=== PATIENT | female | born 1935 | race Caucasian/White ===

== ENCOUNTER 2017-07-13 18:22 | Emergency (ER) | payer MEDICARE, OTHER ==
[2017-07-13] MEDS ORDERED: HALOPERIDOL 2 MG TABLET PO ONE (18:45)
--- NOTE | 2017-07-13 19:09 | RADIOLOGY REPORT (SQ) ---
EXAM DESCRIPTION: CHEST SINGLE VIEW COMPLETED DATE/TIME: 07/13/2017 6:58 pm REASON FOR STUDY: AMS COMPARISON: 12/10/2006. EXAM PARAMETERS: NUMBER OF VIEWS: One view. TECHNIQUE: Single frontal radiographic view of the chest acquired. RADIATION DOSE: NA LIMITATIONS: None. FINDINGS: LUNGS AND PLEURA: No opacities, masses or pneumothorax. No pleural effusion. MEDIASTINUM AND HILAR STRUCTURES: No masses. Contour normal. HEART AND VASCULAR STRUCTURES: Heart normal in size. Normal vasculature. BONES: No acute findings. HARDWARE: None in the chest. OTHER: No other significant finding. IMPRESSION: NO ACUTE RADIOGRAPHIC FINDING IN THE CHEST. TECHNICAL DOCUMENTATION: JOB ID: [id number] [employer]- All Rights Reserved
[2017-07-13] MEDS ORDERED: DIPHENHYDRAMINE HCL 25 MG CAPSULE PO ONE (21:12)
[2017-07-13] MEDS ORDERED: LORAZEPAM 0.5 MG TABLET PO ONE (21:12)
[2017-07-13 21:30] LABS: AMORPHOUS SEDIMENT,URINE TRACE /HPF; APPEARANCE,URINE SLIGHTLY-CLOUDY; BILIRUBIN,URINE NEGATIVE (NEGATIVE); CALCIUM OXALATE CRYSTALS,URINE TOO NUMEROUS TO CNT /HPF; COLOR,URINE YELLOW; GLUCOSE, URINE NEGATIVE (NEGATIVE); KETONES,URINE NEGATIVE (NEGATIVE); LEUKOCYTE ESTERASE,URINE LARGE (NEGATIVE); NITRITE,URINE NEGATIVE (NEGATIVE); PROTEIN,URINE NEGATIVE (NEGATIVE)
[2017-07-13 22:26] LABS: ABSOLUTE EOSINOPHILS # (AUTO) 0.1 10^3/uL (0.0-0.6); ABSOLUTE LYMPHOCYTES (AUTO) 1.7 10^3/uL (0.5-4.7); ABSOLUTE MONOCYTES (AUTO) 0.7 10^3/uL (0.1-1.4); ABSOLUTE NEUT (AUTO) 4.6 10^3/uL (1.7-8.2); BASOPHILS % (AUTO) 0.7 % (0-2); EOSINOPHILS % (AUTO) 1.3 % (0-6); HEMATOCRIT 38.4 % (36.0-47.0); HEMOGLOBIN 12.7 g/dL (12.0-15.5); LYMPHOCYTES % (AUTO) 23.8 % (13-45); MEAN CORPUSCULAR HEMOGLOBIN 29.4 pg (27.0-33.4); MEAN CORPUSCULAR HGB CONC 33.2 g/dL (32.0-36.0); MEAN CORPUSCULAR VOLUME 89 fl (80-97); MONOCYTES % (AUTO) 9.3 % (3-13); PLATELET COUNT 179 10^3/uL (150-450); RED BLOOD COUNT 4.33 10^6/uL (3.72-5.28); RED CELL DISTRIBUTION WIDTH 14.1 % (11.5-14.0); SEGMENTED NEUTROPHILS % (AUTO) 64.9 % (42-78); TOTAL CELLS COUNTED % (AUTO) 100 %; WHITE BLOOD COUNT 7.1 10^3/uL (4.0-10.5)
[2017-07-13 22:32] LABS: VENOUS BLOOD BASE EXCESS 1.9 mmol/L; VENOUS BLOOD HCO3 26.1 mmol/L (20-32); VENOUS BLOOD PCO2 39.5 mmHg (35-63); VENOUS BLOOD PH 7.44 (7.30-7.42)
[2017-07-13 22:43] LABS: ALANINE AMINOTRANSFERASE 27 U/L (9-52); ALBUMIN 3.1 g/dL (3.5-5.0); ALKALINE PHOSPHATASE 77 U/L (38-126); ANION GAP 6 (5-19); ASPARTATE AMINO TRANSFERASE 25 U/L (14-36); BILIRUBIN,TOTAL 0.2 mg/dL (0.2-1.3); BLOOD UREA NITROGEN 17 mg/dL (7-20); CALCIUM 8.9 mg/dL (8.4-10.2); CARBON DIOXIDE 27 mmol/L (22-30); CHLORIDE 108 mmol/L (98-107); POTASSIUM 4.1 mmol/L (3.6-5.0); SODIUM 141.3 mmol/L (137-145); TOTAL PROTEIN 5.5 g/dL (6.3-8.2)
[2017-07-13 22:45] LABS: GLUCOSE 92 mg/dL (75-110)
--- NOTE | 2017-07-13 23:06 | RADIOLOGY REPORT (SQ) ---
EXAM DESCRIPTION: CT HEAD WITHOUT COMPLETED DATE/TIME: 07/13/2017 10:42 pm REASON FOR STUDY: ams leaning COMPARISON: MRI brain 03/12/2016, CT head 11/25/2013 TECHNIQUE: Axial images acquired through the brain without intravenous contrast. Images reviewed wi th bone, brain and subdural windows. Images stored on PACS. All CT scanners at this facility use dose modulation, iterative reconstruction, and/or weight based d osing when appropriate to reduce radiation dose to as low as reasonably achievable (ALARA). [facility]: Dose Right [facility]: CareDose [facility]: Dose Right [facility]: Teradose 4D [facility]: Smart [employer] RADIATION DOSE: CT Rad equipment meets quality standard of care and radiation dose reduction techniq ues were employed. CTDIvol: 67.0 mGy. DLP: 1316 mGy-cm.mGy. LIMITATIONS: None. FINDINGS: VENTRICLES: Prominent. CEREBRUM: No mass effect. No hemorrhage. No midline shift. Areas of low density in the white matte r most likely due to chronic micro-vascular ischemic change. No evidence for acute territorial infar ction. CEREBELLUM: No hemorrhage. No alteration of density. No evidence for acute infarction. EXTRAAXIAL SPACES: Age-related involutional change. No fluid collections. ORBITS AND GLOBE: Symmetrical contour of the globes. CALVARIUM: No depressed fracture. PARANASAL SINUSES: No air-fluid level. SOFT TISSUES: No hematoma. IMPRESSION: No acute intracranial hemorrhage or acute territorial infarct. Chronic changes of atrop hy and microvascular ischemia. EVIDENCE OF ACUTE STROKE: NO. TECHNICAL DOCUMENTATION: JOB ID: [id number] [employer] Quality ID # [id number]: Final reports with documentation of one or more dose reduction techniques (e.g., Au tomated exposure control, adjustment of the mA and/or kV according to patient size, use of iterative reconstruction technique) 2010 [employer]- All Rights Reserved
[2017-07-13] MEDS ORDERED: CEPHALEXIN 500 MG CAPSULE PO ONE (23:11)
--- NOTE | 2017-07-13 23:51 | ER Document Report ---
ED General - General Chief Complaint: Altered Mental Status Stated Complaint: ALTERED MENTAL STATUS Time Seen by Provider: 07/13/17 18:37 TRAVEL OUTSIDE OF THE [place] IN LAST 30 DAYS: No - HPI Patient complains to provider of: Altered mental state leaning when standing Notes: Patient coming in for altered mental state and leaning standing. Patient has a history of dementia. According to EMS and family memberPatient has a history of dementia and normally is a little aggressive however more aggressive today. Also patient has a lean whenever she stands initial concern was for stroke. By my evaluation patient moving all 4 extremities no signs or unilateral weakness. Patient is somewhat confused however family member states this is normal possible but worse than baseline. More exacerbated than baseline - Related Data Allergies/Adverse Reactions: No Known Allergies Allergy (Unverified 02/05/13 10:44) Past Medical History - Social History Smoking Status: Unknown if Ever Smoked Family History: None - Past Medical History Cardiac Medical History: Reports: Hx Hypertension Denies: Hx Coronary Artery Disease, Hx Heart Attack Pulmonary Medical History: Denies: Hx Asthma, Hx Bronchitis, Hx COPD, Hx Pneumonia Neurological Medical History: Denies: Hx Cerebrovascular Accident, Hx Seizures Musculoskeltal Medical History: Reports Hx Arthritis - ALL OVER Past Surgical History: Reports: Hx Breast Surgery - Immunizations Hx Diphtheria, Pertussis, Tetanus Vaccination: Yes Review of Systems - Review of Systems -: Yes ROS unobtainable due to patient's medical condition - Dementia Physical Exam - Vital signs Interpretation: Normal - General General appearance: Appears well, Alert - HEENT Head: Normocephalic, Atraumatic Eyes: Normal Pupils: PERRL - Respiratory Respiratory status: No respiratory distress Chest status: Nontender Breath sounds: Normal Chest palpation: Normal - Cardiovascular Rhythm: Regular Heart sounds: Normal auscultation Murmur: No - Abdominal Inspection: Normal Distension: No distension Bowel sounds: Normal Tenderness: Nontender Organomegaly: No organomegaly - Back Back: Normal, Nontender - Extremities General upper extremity: Normal inspection, Nontender, Normal color, Normal ROM , Normal temperature General lower extremity: Normal inspection, Nontender, Normal color, Normal ROM , Normal temperature, Normal weight bearing. 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 No signs of weakness able to lift both legs off the bed without difficulty. Patient has symmetrical facial movements - Psychological Associated symptoms: Normal affect, Normal mood - Skin Skin Temperature: Warm Skin Moisture: Dry Skin Color: Normal Course - Re-evaluation Re-evalutation: 07/13/17 23:48 Laboratory studies showed possible signs of UTI. Patient was given a dose of Keflex will send urine for culture. Laboratory studies not reveal any critical pathology. Head CT and chest x-ray also negative. May be muscle skeletal issue for the reason the patient walks a little abnormal but no signs of stroke or acute neurological disease. Patient possible exacerbation of her dementia or change in her mental state could be from a underlying UTI. At this time patient otherwise does not look to be septic is able tolerate orals therefore will discharge patient back to [facility] facility - Laboratory Result Diagrams: 07/13/17 22:10 07/13/17 22:10 Laboratory results interpreted by me: 07/13/17 07/13/17 07/13/17 19:10 22:10 22:10 RDW 14.1 H VBG pH Chloride 108 H Total Protein 5.5 L Albumin 3.1 L Urine Blood SMALL H Urine Urobilinogen 2.0 H Ur Leukocyte Esterase LARGE H 07/13/17 22:10 RDW VBG pH 7.44 H Chloride Total Protein Albumin Urine Blood Urine Urobilinogen Ur Leukocyte Esterase Discharge - Discharge Clinical Impression: gait change UTI (urinary tract infection) Qualifiers: Urinary tract infection type: site unspecified Hematuria presence: without hematuria Qualified Code(s): N39.0 - Urinary tract infection, site not specified Instructions: Cephalexin ([facility]), Urinary Tract Infection ([facility]) Additional Instructions: Patient was evaluated no signs of stroke CT scan also showed no signs of intracranial bleeding. Urinalysis shows possible signs of urinary tract infection will start the patient on Keflex. Gait changes could be muscle skeletal nature no bony point tenderness no signs of fracture on examination. We recommend continue antibiotics continue patient's home medications have patient follow-up with PCP. A urine culture was sent and should be followed up in the next 24-48 hours Prescriptions: Cephalexin Monohydrate [Keflex 500 mg Capsule] 500 mg PO QID #20 capsule Referrals: DERIAN TRAN MD [Primary Care Provider] - Follow up as needed
[2017-07-13 23:52] LABS: INTERNATIONAL RATION (INR) 1.08; PROTHROMBIN TIME 14.8 SEC (11.4-15.4)
[2017-07-14 03:27] VITALS: BP 114/75
--- NOTE | 2017-07-14 07:57 | EKG REPORT ---
SEVERITY:- BORDERLINE ECG - SINUS RHYTHM BORDERLINE R WAVE PROGRESSION, ANTERIOR LEADS : Confirmed by: Randall Meredith MD 14-Jul-2017 07:57:18
== END 2017-07-14 03:26 | disposition home health service (06) ==
LOC: ER 18:22
DX: N39.0 Urinary tract infection, site not specified (principal); R26.9 Unspecified abnormalities of gait and mobility; R41.82 Altered mental status, unspecified
CPT/HCPCS: 93005; 99285; 36415; 87040; 87086; 85025; 85610; 87088; 80053; 81001; 82803; 83605; 71045; 70450; 93010; A9270 ×3; J3490

== ENCOUNTER 2017-07-18 09:05 | Emergency (ER) | payer MEDICARE, OTHER ==
--- NOTE | 2017-07-18 10:19 | RADIOLOGY REPORT (SQ) ---
EXAM DESCRIPTION: CT CERVICAL SPINE WITHOUT; CT HEAD WITHOUT COMPLETED DATE/TIME: 07/18/2017 10:01 am REASON FOR STUDY: [facility] COMPARISON: See below. TECHNIQUE: Axial images acquired through the brain and cervical spine without intravenous contrast. Images reviewed with brain, subdural, lung, soft tissue and bone windows. Reconstructed coronal and sagittal MPR images reviewed. Images stored on PACS. All CT scanners at this facility use dose modulation, iterative reconstruction, and/or weight based d osing when appropriate to reduce radiation dose to as low as reasonably achievable (ALARA). [facility]: Dose Right [facility]: CareDose [facility]: Dose Right [facility]: Teradose 4D [facility]: [employer] RADIATION DOSE: CT Rad equipment meets quality standard of care and radiation dose reduction techniq ues were employed. CTDIvol: 7.7 mGy. DLP: 135 mGy-cm.; CT Rad equipment meets quality standard of car e and radiation dose reduction techniques were employed. CTDIvol: 63.5 mGy. DLP: 1163 mGy-cm. mGy. LIMITATIONS: None. FINDINGS: Brain: 07/13/2017 comparison. Moderate small vessel disease. No hemorrhage or mass or shift or developing hy drocephalus. Bones intact. Paranasal sinuses clear. Cervical spine: Minimal C4-5 anterolisthesis looks degenerative. Multilevel disc disease. Left facet arthropathy, m ost pronounced at C3-4-5. No fracture. No worrisome lesions. Soft tissues intact. IMPRESSION: 1. Chronic intracranial changes. Small vessel disease. No acute abnormality. 2. Cerv ical spondylosis without fracture. TECHNICAL DOCUMENTATION: JOB ID: [id number] Quality ID # [id number]: Final reports with documentation of one or more dose reduction techniques (e.g., Au tomated exposure control, adjustment of the mA and/or kV according to patient size, use of iterative reconstruction technique) 2010 [employer]- All Rights Reserved
--- NOTE | 2017-07-18 10:19 | RADIOLOGY REPORT (SQ) ---
EXAM DESCRIPTION: CT CERVICAL SPINE WITHOUT; CT HEAD WITHOUT COMPLETED DATE/TIME: 07/18/2017 10:01 am REASON FOR STUDY: fall? at assisted neck back hip pain COMPARISON: See below. TECHNIQUE: Axial images acquired through the brain and cervical spine without intravenous contrast. Images reviewed with brain, subdural, lung, soft tissue and bone windows. Reconstructed coronal and sagittal MPR images reviewed. Images stored on PACS. All CT scanners at this facility use dose modulation, iterative reconstruction, and/or weight based d osing when appropriate to reduce radiation dose to as low as reasonably achievable (ALARA). [facility]: Dose Right [facility]: CareDose [facility]: Dose Right [facility]: Teradose 4D [facility]: [employer] RADIATION DOSE: CT Rad equipment meets quality standard of care and radiation dose reduction techniq ues were employed. CTDIvol: 7.7 mGy. DLP: 135 mGy-cm.; CT Rad equipment meets quality standard of car e and radiation dose reduction techniques were employed. CTDIvol: 63.5 mGy. DLP: 1163 mGy-cm. mGy. LIMITATIONS: None. FINDINGS: Brain: 07/13/2017 comparison. Moderate small vessel disease. No hemorrhage or mass or shift or developing hy drocephalus. Bones intact. Paranasal sinuses clear. Cervical spine: Minimal C4-5 anterolisthesis looks degenerative. Multilevel disc disease. Left facet arthropathy, m ost pronounced at C3-4-5. No fracture. No worrisome lesions. Soft tissues intact. IMPRESSION: 1. Chronic intracranial changes. Small vessel disease. No acute abnormality. 2. Cerv ical spondylosis without fracture. TECHNICAL DOCUMENTATION: JOB ID: [id number] Quality ID # [id number]: Final reports with documentation of one or more dose reduction techniques (e.g., Au tomated exposure control, adjustment of the mA and/or kV according to patient size, use of iterative reconstruction technique) 2010 [employer]- All Rights Reserved
--- NOTE | 2017-07-18 10:23 | RADIOLOGY REPORT (SQ) ---
EXAM DESCRIPTION: HIP BILATERAL; T SPINE AP/LAT; L SPINE WHOLE COMPLETED DATE/TIME: 07/18/2017 10:11 am; 07/18/2017 10:12 am REASON FOR STUDY: fall pain; fall? at [facility] hip pain COMPARISON: None. FINDINGS: Two view thoracic spine: Osteopenic. Mild kyphosis. No fracture. Multilevel mild disc space narrowing and associated osteophytes. No mediastinal mass or lung pathology demonstrated. Five view lumbosacral spine including obliques: Osteopenic. Mild grade 1 degenerative listhesis at L4-5. No pars defect. Multilevel facet degenerative overgrowth. Relatively mild disc disease at mu ltiple levels. Bilateral hips: 4 images total. Relatively symmetric mild degenerative hip joint spurring. Joint s paces are fairly maintained otherwise. No fracture or bone lesion. Degenerative SI joint changes. IMPRESSION: 1. Osteopenic. 2. Degenerative thoracic and lumbar spine changes. No spine or hip fra cture. TECHNICAL DOCUMENTATION: JOB ID: [id number]
--- NOTE | 2017-07-18 10:23 | RADIOLOGY REPORT (SQ) ---
EXAM DESCRIPTION: HIP BILATERAL; T SPINE AP/LAT; L SPINE WHOLE COMPLETED DATE/TIME: 07/18/2017 10:11 am; 07/18/2017 10:12 am REASON FOR STUDY: fall pain; fall? at [facility] pain COMPARISON: None. FINDINGS: Two view thoracic spine: Osteopenic. Mild kyphosis. No fracture. Multilevel mild disc space narrowing and associated osteophytes. No mediastinal mass or lung pathology demonstrated. Five view lumbosacral spine including obliques: Osteopenic. Mild grade 1 degenerative listhesis at L4-5. No pars defect. Multilevel facet degenerative overgrowth. Relatively mild disc disease at mu ltiple levels. Bilateral hips: 4 images total. Relatively symmetric mild degenerative hip joint spurring. Joint s paces are fairly maintained otherwise. No fracture or bone lesion. Degenerative SI joint changes. IMPRESSION: 1. Osteopenic. 2. Degenerative thoracic and lumbar spine changes. No spine or hip fra cture. TECHNICAL DOCUMENTATION: JOB ID: [id number]
--- NOTE | 2017-07-18 10:23 | RADIOLOGY REPORT (SQ) ---
EXAM DESCRIPTION: HIP BILATERAL; T SPINE AP/LAT; L SPINE WHOLE COMPLETED DATE/TIME: 07/18/2017 10:11 am; 07/18/2017 10:12 am REASON FOR STUDY: fall pain; fall? at [facility] neck back hip pain COMPARISON: None. FINDINGS: Two view thoracic spine: Osteopenic. Mild kyphosis. No fracture. Multilevel mild disc space narrowing and associated osteophytes. No mediastinal mass or lung pathology demonstrated. Five view lumbosacral spine including obliques: Osteopenic. Mild grade 1 degenerative listhesis at L4-5. No pars defect. Multilevel facet degenerative overgrowth. Relatively mild disc disease at mu ltiple levels. Bilateral hips: 4 images total. Relatively symmetric mild degenerative hip joint spurring. Joint s paces are fairly maintained otherwise. No fracture or bone lesion. Degenerative SI joint changes. IMPRESSION: 1. Osteopenic. 2. Degenerative thoracic and lumbar spine changes. No spine or hip fra cture. TECHNICAL DOCUMENTATION: JOB ID: [id number]
--- NOTE | 2017-07-18 10:42 | ER Document Report ---
ED General - General Chief Complaint: Fall Stated Complaint: FALL NECK PAIN Time Seen by Provider: 07/18/17 09:15 TRAVEL OUTSIDE OF THE [place] IN LAST 30 DAYS: No - HPI Patient complains to provider of: Possible fall Notes: Patient coming in for local assisted facility for possible fall. Upon evaluating the patient with dementia patient complains of pain on top of her head neck pain and hip pain. Otherwise patient is a for historian unable to give much of information on HPI. Most of the HPI is obtained from EMS report and nursing reports. Patient otherwise looks nontoxic - Related Data Allergies/Adverse Reactions: No Known Allergies Allergy (Unverified 02/05/13 10:44) Past Medical History - Social History Smoking Status: Unknown if Ever Smoked Chew tobacco use (# tins/day): No Frequency of alcohol use: None Drug Abuse: None Family History: Reviewed & Not Pertinent Patient has suicidal ideation: No Patient has homicidal ideation: No - Past Medical History Cardiac Medical History: Reports: Hx Hypertension Denies: Hx Coronary Artery Disease, Hx Heart Attack Pulmonary Medical History: Denies: Hx Asthma, Hx Bronchitis, Hx COPD, Hx Pneumonia Neurological Medical History: Denies: Hx Cerebrovascular Accident, Hx Seizures Renal/ Medical History: Denies: Hx Peritoneal Dialysis Musculoskeltal Medical History: Reports Hx Arthritis - ALL OVER Past Surgical History: Reports: Hx Breast Surgery - Immunizations Hx Diphtheria, Pertussis, Tetanus Vaccination: Yes Review of Systems - Review of Systems -: Yes ROS unobtainable due to patient's medical condition - Dementia Physical Exam - Vital signs Vitals: Resp Pulse Ox 23 H 99 07/18/17 09:24 07/18/17 09:24 Interpretation: Normal - General General appearance: Appears well, Alert - HEENT Head: Normocephalic, Atraumatic, Other - Small hematoma to the right superior occipital region Eyes: Normal Pupils: PERRL Neck: Other - Diffuse neck pain - Respiratory Respiratory status: No respiratory distress Chest status: Nontender Breath sounds: Normal Chest palpation: Normal - Cardiovascular Rhythm: Regular Heart sounds: Normal auscultation Murmur: No - Abdominal Inspection: Normal Distension: No distension Bowel sounds: Normal Tenderness: Nontender Organomegaly: No organomegaly - Back Back: Normal, Nontender - Extremities General upper extremity: Normal inspection, Nontender, Normal color, Normal ROM , Normal temperature General lower extremity: Normal inspection, Nontender, Normal color, Normal ROM , Normal temperature, Normal weight bearing. No: Dev's sign - Neurological Neuro grossly intact: Yes Cognition: Confused Motor strength normal: LUE, RUE, LLE, RLE Sensory: Normal - Psychological Associated symptoms: Normal mood, Confused - Skin Skin Temperature: Warm Skin Moisture: Dry Skin Color: Normal Course - Re-evaluation Re-evalutation: 07/18/17 14:56 X-rays were performed the patient complains of tenderness. No signs of acute fracture more likely underlying bruising or contusions. He will update the family. Patient will be discharged back to the assisted facility. - Vital Signs Vital signs: Temp Pulse Resp BP Pulse Ox 97.4 F 78 13 169/71 H 100 07/18/17 12:02 07/18/17 12:02 07/18/17 10:05 07/18/17 12:02 07/18/17 12:02 Discharge - Discharge Clinical Impression: Fall Qualifiers: Encounter type: initial encounter Qualified Code(s): W19.XXXA - Unspecified fall, initial encounter Arthralgia Qualifiers: Joint pain location: unspecified Qualified Code(s): M25.50 - Pain in unspecified joint Back pain Qualifiers: Chronicity: unspecified Back pain laterality: unspecified Sciatica presence: without sciatica Condition: Good Disposition: HOME, SELF-CARE Instructions: Contusion ([facility]), Ice Packs ([facility]), Warm Packs ([facility]) Additional Instructions: Patient was seen and evaluated for possible fall. Head CT cervical spine CT x- rays of the hips and back do not reveal any new pathology no fractures. These continue with Tylenol for pain control. He may also place warm packs and cold packs on the areas that hurt. Have patient follow-up PCP as needed. Referrals: DERIAN TRAN MD [Primary Care Provider] - Follow up as needed
[2017-07-18 12:03] VITALS: BP 169/71
== END 2017-07-18 12:00 | disposition home or self-care (01) ==
LOC: ER 09:05
DX: S00.03XA Contusion of scalp, initial encounter (principal); M54.9 Dorsalgia, unspecified; R51 Headache; M54.2 Cervicalgia; M25.559 Pain in unspecified hip; W19.XXXA Unspecified fall, initial encounter; F03.90 Unspecified dementia, unspecified severity, without behavioral disturbance, psychotic disturbance, mood disturbance, and anxiety; I10 Essential (primary) hypertension
CPT/HCPCS: 70450; 72070; 72110; 72125; 73522; 99284

== ENCOUNTER 2017-10-23 15:45 | Emergency (ER) | payer MEDICARE, OTHER ==
[2017-10-23 16:21] VITALS: BP 137/75
--- NOTE | 2017-10-23 16:32 | ER Document Report ---
ED Fall - General Chief Complaint: Fall Stated Complaint: FALL Time Seen by Provider: 10/23/17 16:31 TRAVEL OUTSIDE OF THE [place] IN LAST 30 DAYS: No - Related data Allergies/Adverse Reactions: No Known Allergies Allergy (Unverified 02/05/13 10:44) Past Medical History - Social History Family History: Reviewed & Not Pertinent - Past Medical History Cardiac Medical History: Reports: Hx Hypertension Denies: Hx Coronary Artery Disease, Hx Heart Attack Pulmonary Medical History: Denies: Hx Asthma, Hx Bronchitis, Hx COPD, Hx Pneumonia Neurological Medical History: Denies: Hx Cerebrovascular Accident, Hx Seizures Renal/ Medical History: Denies: Hx Peritoneal Dialysis Musculoskeltal Medical History: Reports Hx Arthritis - ALL OVER Past Surgical History: Reports: Hx Breast Surgery - Immunizations Hx Diphtheria, Pertussis, Tetanus Vaccination: Yes Physical Exam - Vital signs Vitals: Temp Pulse Resp BP Pulse Ox 98.1 F 92 18 137/75 H 97 10/23/17 16:20 10/23/17 16:20 10/23/17 16:20 10/23/17 16:20 10/23/17 16:20 Course - Vital Signs Vital signs: Temp Pulse Resp BP Pulse Ox 98.1 F 92 18 137/75 H 97 10/23/17 16:20 10/23/17 16:20 10/23/17 16:20 10/23/17 16:20 10/23/17 16:20
--- NOTE | 2017-10-23 16:34 | ER Document Report ---
ED Fall - General Chief Complaint: Fall Stated Complaint: FALL Time Seen by Provider: 10/23/17 16:31 Mode of Arrival: Medic Information source: Transfer Record, [facility] Records Notes: This is an 81-year-old female with a history of dementia who is brought in to the emergency room by EMS after a fall at home. Patient has brought in with cervical collar. No known loss of consciousness. TRAVEL OUTSIDE OF THE [place] IN LAST 30 DAYS: No - HPI Occurred: Just prior to arrival Where: Group Home Context: Slipped Associated symptoms: denies: Lost consciousness Location of injury/pain: Head Quality of pain: No pain Severity: None Pain Level: Denies - Related data Allergies/Adverse Reactions: No Known Allergies Allergy (Unverified 02/05/13 10:44) Past Medical History - General Information source: Patient Cannot obtain history due to: Other - Patient has baseline dementia - Social History Smoking Status: Never Smoker Cigarette use (# per day): No Chew tobacco use (# tins/day): No Frequency of alcohol use: None Drug Abuse: None Lives with: Group Home Family History: Reviewed & Not Pertinent Patient has suicidal ideation: No Patient has homicidal ideation: No - Past Medical History Cardiac Medical History: Reports: Hx Hypertension Denies: Hx Coronary Artery Disease, Hx Heart Attack Pulmonary Medical History: Denies: Hx Asthma, Hx Bronchitis, Hx COPD, Hx Pneumonia Neurological Medical History: Denies: Hx Cerebrovascular Accident, Hx Seizures Renal/ Medical History: Denies: Hx Peritoneal Dialysis Musculoskeltal Medical History: Reports Hx Arthritis - ALL OVER Past Surgical History: Reports: Hx Breast Surgery - Immunizations Hx Diphtheria, Pertussis, Tetanus Vaccination: Yes Review of Systems - Review of Systems Constitutional: denies: Chills, Fever EENT: No symptoms reported Cardiovascular: No symptoms reported Respiratory: No symptoms reported Gastrointestinal: No symptoms reported Genitourinary: No symptoms reported Female Genitourinary: No symptoms reported Musculoskeletal: No symptoms reported Skin: No symptoms reported Hematologic/Lymphatic: No symptoms reported Neurological/Psychological: See HPI Physical Exam - Vital signs Vitals: Temp Pulse Resp BP Pulse Ox 98.1 F 92 18 137/75 H 97 10/23/17 16:20 10/23/17 16:20 10/23/17 16:20 10/23/17 16:20 10/23/17 16:20 Notes: Physical exam: GENERAL: 81-year-old female, alert with dementia. HEAD: Atraumatic, normocephalic. EYES: Pupils equal round and reactive to light, extraocular movements intact, sclera anicteric, conjunctiva are normal. ENT: TMs normal, nares patent, oropharynx clear without exudates. Moist mucous membranes. NECK: Cervical collar in place LUNGS: Breath sounds clear to auscultation bilaterally and equal. No wheezes rales or rhonchi. HEART: Regular rate and rhythm without murmurs, rubs or gallops. ABDOMEN: Soft, normoactive bowel sounds. No tenderness to palpation. No guarding, no rebound. No masses appreciated. EXTREMITIES: Normal range of motion, no pitting or edema. No clubbing or cyanosis. NEUROLOGICAL: Alert, baseline dementia, moving all extremities. PSYCH: Normal mood, normal affect. SKIN: Warm, Dry, normal turgor, no rashes or lesions noted. Course - Vital Signs Vital signs: Temp Pulse Resp BP Pulse Ox 98.1 F 92 18 137/75 H 97 10/23/17 16:20 10/23/17 16:20 10/23/17 16:20 10/23/17 16:20 10/23/17 16:20 - Diagnostic Test Radiology reviewed: Image reviewed, Reports reviewed - Head CT shows no acute bleed. CT of the neck shows no acute fracture. There is some endplate deformities which are subacute over T2 and T3 (patient has no tenderness over this area). Discharge - Discharge Clinical Impression: Contusion head status post fall Condition: Stable Disposition: HOME, SELF-CARE Additional Instructions: Note: The CT of the head showed no acute bleed or fracture. The CT of the neck showed no fractures. There was some degenerative changes in the upper thoracic spine which the patient states has a history of. She has no tenderness over this area. Recommendations: Continue current medicines. Fall precautions. Return to the emergency room for any problems.
--- NOTE | 2017-10-23 17:40 | RADIOLOGY REPORT (SQ) ---
EXAM DESCRIPTION: CT HEAD WITHOUT COMPLETED DATE/TIME: 10/23/2017 5:28 pm REASON FOR STUDY: fall COMPARISON: CT dated 07/18/2017 and 07/13/2017. MR dated 03/12/2016. TECHNIQUE: Axial images acquired through the brain without intravenous contrast. Images reviewed wi th bone, brain and subdural windows. Additional sagittal and coronal reconstructions were generated. Images stored on PACS. All CT scanners at this facility use dose modulation, iterative reconstruction, and/or weight based d osing when appropriate to reduce radiation dose to as low as reasonably achievable (ALARA). [facility]: Dose Right [facility]: CareDose [facility]: Dose Right [facility]: Teradose 4D [facility]: Biologics Modular RADIATION DOSE: mGy. LIMITATIONS: None. FINDINGS: VENTRICLES: Prominent. CEREBRUM: No masses. No hemorrhage. No midline shift. Areas of low density in the white matter mos t likely due to chronic micro-vascular ischemic change. No evidence for acute infarction. CEREBELLUM: No masses. No hemorrhage. No alteration of density. No evidence for acute infarction. EXTRAAXIAL SPACES: Age-related involutional change. No fluid collections. No masses. ORBITS AND GLOBE: No intra- or extraconal masses. Normal contour of globe without masses. CALVARIUM: No fracture. PARANASAL SINUSES: No fluid or mucosal thickening. SOFT TISSUES: No mass or hematoma. OTHER: Pituitary mass again seen. IMPRESSION: CHRONIC CHANGES OF ATROPHY AND MICROVASCULAR ISCHEMIA. PITUITARY MASS APPEARS UNCHANGED COMPARED TO PRIOR MRI IN MARCH 2016. NO ACUTE PROCESS. EVIDENCE OF ACUTE STROKE: NO. TECHNICAL DOCUMENTATION: JOB ID: [id number] Quality ID # [id number]: Final reports with documentation of one or more dose reduction techniques (e.g., Au tomated exposure control, adjustment of the mA and/or kV according to patient size, use of iterative reconstruction technique) 2010 [employer]- All Rights Reserved Reading location - IP/workstation name: [email or web address]
--- NOTE | 2017-10-23 18:50 | RADIOLOGY REPORT (SQ) ---
EXAM DESCRIPTION: CT CERVICAL SPINE WITHOUT COMPLETED DATE/TIME: 10/23/2017 6:34 pm; 10/23/2017 5:28 pm REASON FOR STUDY: REPEAT PER RAD; fall COMPARISON: Cervical spine CT 07/18/2017 TECHNIQUE: Axial images acquired through the cervical spine without intravenous contrast, originally obtained at 1715 hours repeat scanning was performed at 1821 hours due to motion artifact. Images r eviewed with lung, soft tissue and bone windows. Reconstructed coronal and sagittal MPR images revie wed. Images stored on PACS. All CT scanners at this facility use dose modulation, iterative reconstruction, and/or weight based d osing when appropriate to reduce radiation dose to as low as reasonably achievable (ALARA). [facility]: Dose Right [facility]: CareDose [facility]: Dose Right [facility]: Teradose 4D [facility]: ADR Software RADIATION DOSE: 13.6mGy. LIMITATIONS: None. FINDINGS: ALIGNMENT: Anatomic. MINERALIZATION: Normal. VERTEBRAL BODIES: No cervical fractures or dislocation. However, since the prior CT exam from 07/18/19 18, patient has developed a subacute upper endplate compression deformities at T2 and T3, with mild b julissa sclerosis along the upper endplates. This is best shown on sagittal reconstruction image 18 DISCS: There is disc space loss of height with mild posterior bony spurring at C5-6 and C6-7 FACETS, LATERAL MASSES, POSTERIOR ELEMENTS: No fractures. No dislocation. No acute findings. HARDWARE: None in the spine. VISUALIZED RIBS: No fractures. LUNG APICES AND SOFT TISSUES: No significant or acute findings. OTHER: No other significant finding. IMPRESSION: Subacute T2 and T3 upper endplate compression deformities. No acute fracture or malalignment. TECHNICAL DOCUMENTATION: JOB ID: [id number] Quality ID # [id number]: Final reports with documentation of one or more dose reduction techniques (e.g., Au tomated exposure control, adjustment of the mA and/or kV according to patient size, use of iterative reconstruction technique) 2010 [employer]- All Rights Reserved Reading location - IP/workstation name: [email or web address]
--- NOTE | 2017-10-23 18:50 | RADIOLOGY REPORT (SQ) ---
EXAM DESCRIPTION: CT CERVICAL SPINE WITHOUT COMPLETED DATE/TIME: 10/23/2017 6:34 pm; 10/23/2017 5:28 pm REASON FOR STUDY: REPEAT PER RAD; fall COMPARISON: Cervical spine CT 07/18/2017 TECHNIQUE: Axial images acquired through the cervical spine without intravenous contrast, originally obtained at 1715 hours repeat scanning was performed at 1821 hours due to motion artifact. Images r eviewed with lung, soft tissue and bone windows. Reconstructed coronal and sagittal MPR images revie wed. Images stored on PACS. All CT scanners at this facility use dose modulation, iterative reconstruction, and/or weight based d osing when appropriate to reduce radiation dose to as low as reasonably achievable (ALARA). [facility]: Dose Right [facility]: CareDose [facility]: Dose Right [facility]: Teradose 4D [facility]: Peer5 RADIATION DOSE: 13.6mGy. LIMITATIONS: None. FINDINGS: ALIGNMENT: Anatomic. MINERALIZATION: Normal. VERTEBRAL BODIES: No cervical fractures or dislocation. However, since the prior CT exam from 07/18/19 18, patient has developed a subacute upper endplate compression deformities at T2 and T3, with mild b julissa sclerosis along the upper endplates. This is best shown on sagittal reconstruction image 18 DISCS: There is disc space loss of height with mild posterior bony spurring at C5-6 and C6-7 FACETS, LATERAL MASSES, POSTERIOR ELEMENTS: No fractures. No dislocation. No acute findings. HARDWARE: None in the spine. VISUALIZED RIBS: No fractures. LUNG APICES AND SOFT TISSUES: No significant or acute findings. OTHER: No other significant finding. IMPRESSION: Subacute T2 and T3 upper endplate compression deformities. No acute fracture or malalignment. TECHNICAL DOCUMENTATION: JOB ID: [id number] Quality ID # [id number]: Final reports with documentation of one or more dose reduction techniques (e.g., Au tomated exposure control, adjustment of the mA and/or kV according to patient size, use of iterative reconstruction technique) 2010 [employer]- All Rights Reserved Reading location - IP/workstation name: [email or web address]
== END 2017-10-23 22:15 | disposition home or self-care (01) ==
LOC: ER 15:45
DX: S00.93XA Contusion of unspecified part of head, initial encounter (principal); W01.0XXA Fall on same level from slipping, tripping and stumbling without subsequent striking against object, initial encounter; Y92.121 Bathroom in nursing home as the place of occurrence of the external cause; F03.90 Unspecified dementia, unspecified severity, without behavioral disturbance, psychotic disturbance, mood disturbance, and anxiety; I10 Essential (primary) hypertension
CPT/HCPCS: 70450; 72125; 99284

== ENCOUNTER 2017-12-28 18:56 | Emergency (ER) | payer MEDICARE, OTHER ==
--- NOTE | 2017-12-28 19:47 | ER Document Report ---
ED General - General Chief Complaint: Fall Stated Complaint: FALL Time Seen by Provider: 12/28/17 19:10 TRAVEL OUTSIDE OF THE [place] IN LAST 30 DAYS: No - HPI Notes: 82-year-old female with history of dementia presents from assisted living after a fall. She fell backwards and hit the right side of her head. She reports pain only at the location of the head injury. No neck pain. No focal numbness or weakness. History limited due to history of dementia. She is not taking anticoagulants. - Related Data Allergies/Adverse Reactions: chauhan peppers Allergy (Uncoded 12/28/17 19:27) Past Medical History - Social History Smoking Status: Former Smoker Chew tobacco use (# tins/day): No Frequency of alcohol use: None Drug Abuse: None Family History: Reviewed & Not Pertinent Patient has suicidal ideation: No Patient has homicidal ideation: No - Past Medical History Cardiac Medical History: Reports: Hx Hypertension Denies: Hx Coronary Artery Disease, Hx Heart Attack Pulmonary Medical History: Denies: Hx Asthma, Hx Bronchitis, Hx COPD, Hx Pneumonia Neurological Medical History: Denies: Hx Cerebrovascular Accident, Hx Seizures Renal/ Medical History: Denies: Hx Peritoneal Dialysis Musculoskeletal Medical History: Reports Hx Arthritis - ALL OVER Past Surgical History: Reports: Hx Breast Surgery - Immunizations Hx Diphtheria, Pertussis, Tetanus Vaccination: Yes Review of Systems - Review of Systems -: Yes ROS unobtainable due to patient's medical condition - Dementia Physical Exam - Vital signs Vitals: Temp Pulse Resp BP Pulse Ox 98.4 F 72 17 139/44 H 100 12/28/17 19:22 12/28/17 19:22 12/28/17 19:22 12/28/17 19:22 12/28/17 19:22 - Notes Notes: PHYSICAL EXAMINATION: GENERAL: Well-appearing, well-nourished and in no acute distress. HEAD: Right posterior scalp hematoma with tenderness. No bleeding. normocephalic. EYES: Pupils equal round and reactive to light, extraocular movements intact, conjunctiva are normal. ENT: nares patent, oropharynx clear without exudates. Moist mucous membranes. NECK: Normal range of motion, supple without lymphadenopathy LUNGS: Breath sounds clear to auscultation bilaterally and equal. No wheezes rales or rhonchi. HEART: Regular rate and rhythm, no chest wall tenderness ABDOMEN: Soft, nontender, normoactive bowel sounds. No guarding, no rebound. No masses appreciated. EXTREMITIES: Normal range of motion, no pitting or edema. No cyanosis. NEUROLOGICAL: Cranial nerves grossly intact. Normal speech. Normal sensory and motor exams. PSYCH: Normal mood, normal affect, pleasantly confused SKIN: Warm, Dry, normal turgor, no rashes or lesions noted. Course - Re-evaluation Re-evalutation: 12/28/17 19:[address] ordered 12/28/17 21:[address] negative. Will discharge. - Vital Signs Vital signs: Temp Pulse Resp BP Pulse Ox 98.4 F 72 17 139/44 H 100 12/28/17 19:22 12/28/17 19:22 12/28/17 19:22 12/28/17 19:22 12/28/17 19:22 - Diagnostic Test Radiology reviewed: Reports reviewed Discharge - Discharge Clinical Impression: Closed head injury Qualifiers: Encounter type: initial encounter Qualified Code(s): S09.90XA - Unspecified injury of head, initial encounter Condition: Good Disposition: HOME-ASSISTED LIVING Instructions: Head Injury Precautions ([facility]) Additional Instructions: Apply ice. Return for any worsening or concerning symptoms such as confusion or severe headache.
--- NOTE | 2017-12-28 21:02 | RADIOLOGY REPORT (SQ) ---
EXAM DESCRIPTION: CT HEAD WITHOUT COMPLETED DATE/TIME: 12/28/2017 8:38 pm REASON FOR STUDY: fall, scalp hematoma COMPARISON: 10/23/2017 TECHNIQUE: Axial images acquired through the brain without intravenous contrast. Images reviewed wi th bone, brain and subdural windows. Images stored on PACS. All CT scanners at this facility use dose modulation, iterative reconstruction, and/or weight based d osing when appropriate to reduce radiation dose to as low as reasonably achievable (ALARA). [facility]: Dose Right [facility]: CareDose [facility]: Dose Right [facility]: Teradose 4D [facility]: [employer] RADIATION DOSE: CT Rad equipment meets quality standard of care and radiation dose reduction techniq ues were employed. CTDIvol: 53.2 mGy. DLP: 964 mGy-cm. mGy. LIMITATIONS: None. FINDINGS: VENTRICLES: Age-appropriate. CEREBRUM: No masses. No hemorrhage. No midline shift. Areas of low density in the white matter mos t likely due to chronic micro-vascular ischemic change. No evidence for acute infarction. CEREBELLUM: No masses. No hemorrhage. No alteration of density. No evidence for acute infarction. EXTRAAXIAL SPACES: Mild age-related involutional change. No fluid collections. No masses. ORBITS AND GLOBE: No intra- or extraconal masses. Normal contour of globe without masses. CALVARIUM: No fracture. PARANASAL SINUSES: Sphenoid mucosal thickening. SOFT TISSUES: Right parietal soft tissue swelling. OTHER: No other significant finding. IMPRESSION: No acute intracranial findings. EVIDENCE OF ACUTE STROKE: NO. TECHNICAL DOCUMENTATION: JOB ID: [id number] [place]-72 Quality ID # [id number]: Final reports with documentation of one or more dose reduction techniques (e.g., Au tomated exposure control, adjustment of the mA and/or kV according to patient size, use of iterative reconstruction technique) 2010 [employer]- All Rights Reserved Reading location - IP/workstation name: [employer]
[2017-12-29 00:15] VITALS: BP 167/85
== END 2017-12-29 00:13 | disposition home health service (06) ==
LOC: ER 18:56
DX: S00.03XA Contusion of scalp, initial encounter (principal); W19.XXXA Unspecified fall, initial encounter; Y92.199 Unspecified place in other specified residential institution as the place of occurrence of the external cause; F03.90 Unspecified dementia, unspecified severity, without behavioral disturbance, psychotic disturbance, mood disturbance, and anxiety; I10 Essential (primary) hypertension; Z91.018 Allergy to other foods
CPT/HCPCS: 70450; 99285

== ENCOUNTER 2019-01-30 10:44 | Emergency (ER) | payer MEDICARE, OTHER, MEDICAID ==
[2019-01-30 10:54] VITALS: BP 160/74
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
--- NOTE | 2019-01-30 11:41 | RADIOLOGY REPORT (SQ) ---
EXAM DESCRIPTION: CT HEAD WITHOUT COMPLETED DATE/TIME: 01/30/2019 11:30 am REASON FOR STUDY: Fell and hit left forehead/orbit area COMPARISON: 12/28/2017 TECHNIQUE: Axial images acquired through the brain without intravenous contrast. Images reviewed wi th bone, brain and subdural windows. Additional sagittal and coronal reconstructions were generated. Images stored on PACS. All CT scanners at this facility use dose modulation, iterative reconstruction, and/or weight based d osing when appropriate to reduce radiation dose to as low as reasonably achievable (ALARA). [facility]: Dose Right [facility]: CareDose [facility]: Dose Right [facility]: Teradose 4D [facility]: [employer] RADIATION DOSE: CT Rad equipment meets quality standard of care and radiation dose reduction techniq ues were employed. CTDIvol: 48.6 mGy. DLP: 953 mGy-cm. mGy. LIMITATIONS: None. FINDINGS: VENTRICLES: Prominent. CEREBRUM: No masses. No hemorrhage. No midline shift. Areas of low density in the white matter mos t likely due to chronic micro-vascular ischemic change. Unchanged focal area of hypoattenuation with in the right nesbitt radiata. No evidence of acute large vascular territory infarction. CEREBELLUM: No masses. No hemorrhage. No alteration of density. No evidence for acute infarction. EXTRAAXIAL SPACES: Mild age-related involutional change. No fluid collections. No masses. ORBITS AND GLOBE: No intra- or extraconal masses. Normal contour of globe without masses. CALVARIUM: No fracture. Hyperostosis frontalis interna. PARANASAL SINUSES: No fluid or mucosal thickening. SOFT TISSUES: Soft tissue swelling along the left frontal calvarium. OTHER: No other significant finding. IMPRESSION: 1. Soft tissue swelling along the left frontal calvarium without evidence of acute bony abnormality. 2. Stable chronic changes as above. EVIDENCE OF ACUTE STROKE: NO. TECHNICAL DOCUMENTATION: JOB ID: [id number] Quality ID # [id number]: Final reports with documentation of one or more dose reduction techniques (e.g., Au tomated exposure control, adjustment of the mA and/or kV according to patient size, use of iterative reconstruction technique) 2010 [employer]- All Rights Reserved Reading location - IP/workstation name: [email or web address]
== END 2019-01-30 15:50 | disposition home or self-care (01) ==
LOC: ER 10:44
DX: S00.12XA Contusion of left eyelid and periocular area, initial encounter (principal); Y04.8XXA Assault by other bodily force, initial encounter; Y92.199 Unspecified place in other specified residential institution as the place of occurrence of the external cause; F03.90 Unspecified dementia, unspecified severity, without behavioral disturbance, psychotic disturbance, mood disturbance, and anxiety; Z91.018 Allergy to other foods; Z66 Do not resuscitate; I10 Essential (primary) hypertension
CPT/HCPCS: 70450; 99284

== ENCOUNTER 2019-08-21 16:32 | Emergency (ER) | payer MEDICARE, MEDICAID ==
[2019-08-21 17:57] LABS: APPEARANCE,URINE SLIGHTLY-CLOUDY; BILIRUBIN,URINE NEGATIVE (NEGATIVE); COLOR,URINE YELLOW; GLUCOSE, URINE NEGATIVE (NEGATIVE); KETONES,URINE NEGATIVE (NEGATIVE); LEUKOCYTE ESTERASE,URINE NEGATIVE (NEGATIVE); NITRITE,URINE POSITIVE (NEGATIVE); PROTEIN,URINE NEGATIVE (NEGATIVE); URINE SPECIFIC GRAVITY 1.006; UROBILINOGEN,URINE NEGATIVE mg/dL (<2.0)
[2019-08-21 18:04] LABS: ADD MANUAL MICROSCOPIC YES; BACTERIA,URINE 2+ /HPF; RBC,URINE RARE /HPF
[2019-08-21] MEDS ORDERED: CEFTRIAXONE INJ 1000 MG VIAL IV ONE (18:25)
[2019-08-21] MEDS ORDERED: GENTAMICIN SULFATE INJ 80 MG/2 ML VIAL IM ONE (18:27)
--- NOTE | 2019-08-21 18:28 | ER Document Report ---
ED General - General Chief Complaint: Urinary Problem Stated Complaint: URINARY PROBLEM Time Seen by Provider: 08/21/19 18:03 Mode of Arrival: Ambulatory Cannot obtain history due to: Dementia Notes: patient was sent to the ED from [facility]. Staff concerned for urinary tract infection. Patient has a history of dementia and is unable to participate in assessment questions. Patient is awake and alert. Pleasantly confused. TRAVEL OUTSIDE OF THE [place] IN LAST 30 DAYS: No - HPI Onset: Just prior to arrival Quality of pain: No pain Severity: None Pain Level: Denies Associated symptoms: None Exacerbated by: Denies Relieved by: Denies Similar symptoms previously: No Recently seen / treated by doctor: No - Related Data Allergies/Adverse Reactions: chauhan peppers Allergy (Uncoded 12/28/17 19:27) Past Medical History - General Information source: Transfer Record, Emergency Med Personnel - Social History Smoking Status: Never Smoker Cigarette use (# per day): No Chew tobacco use (# tins/day): No Smoking Education Provided: No Frequency of alcohol use: None Drug Abuse: None Family History: Reviewed & Not Pertinent Patient has suicidal ideation: No Patient has homicidal ideation: No - Past Medical History Cardiac Medical History: Reports: Hx Hypertension Denies: Hx Coronary Artery Disease, Hx Heart Attack Pulmonary Medical History: Denies: Hx Asthma, Hx Bronchitis, Hx COPD, Hx Pneumonia Neurological Medical History: Denies: Hx Cerebrovascular Accident, Hx Seizures Renal/ Medical History: Denies: Hx Peritoneal Dialysis Musculoskeletal Medical History: Reports Hx Arthritis - ALL OVER Psychiatric Medical History: Reports: Hx Dementia Past Surgical History: Reports: Hx Breast Surgery - Immunizations Hx Diphtheria, Pertussis, Tetanus Vaccination: Yes Review of Systems - Review of Systems Constitutional: No symptoms reported EENT: No symptoms reported Cardiovascular: No symptoms reported Respiratory: No symptoms reported Gastrointestinal: No symptoms reported Genitourinary: See HPI, Dysuria Female Genitourinary: No symptoms reported Musculoskeletal: No symptoms reported Skin: No symptoms reported Hematologic/Lymphatic: No symptoms reported Neurological/Psychological: No symptoms reported Physical Exam - Vital signs Vitals: Pulse Resp BP Pulse Ox 71 18 134/71 H 97 08/21/19 16:37 08/21/19 16:37 08/21/19 16:37 08/21/19 16:37 Interpretation: Normal - HEENT Head: Normocephalic Eyes: Normal Conjunctiva: Normal Cornea: Normal Extraocular movements intact: Yes Eyelashes: Normal Pupils: PERRL Nasal: Normal Mouth/Lips: Normal Pharynx: Normal Neck: Normal - Respiratory Respiratory status: No respiratory distress Chest status: Nontender Breath sounds: Normal Chest palpation: Normal - Cardiovascular Rhythm: Regular Heart sounds: Normal auscultation Murmur: No Friction rub: No Jennifer's crunch: No - Abdominal Inspection: Normal Distension: No distension Bowel sounds: Normal Tenderness: Nontender Organomegaly: No organomegaly - Back Back: Normal - Extremities General upper extremity: Normal inspection General lower extremity: Normal inspection - Patient walking around the nurses station with assistance by nursing staff - Neurological Neuro grossly intact: Yes Cognition: Confused Orientation: Disoriented to person Neetu Coma Scale Eye Opening: Spontaneous Clyde Coma Scale Verbal: Oriented Clyde Coma Scale Motor: Obeys Commands Neetu Coma Scale Total: 15 Speech: Normal Cranial nerves: Normal Cerebellar coordination: Normal Motor strength normal: LUE, RUE, LLE, RLE - Psychological Associated symptoms: Confused - Skin Skin Temperature: Warm Skin Moisture: Dry Course - Vital Signs Vital signs: Temp Pulse Resp BP Pulse Ox 71 18 134/71 H 97 08/21/19 16:37 08/21/19 16:37 08/21/19 16:37 08/21/19 16:37 Critical Care Note - Critical Care Note Total time excluding time spent on procedures (mins): 90 Discharge - Discharge Clinical Impression: UTI (urinary tract infection) Qualifiers: Urinary tract infection type: site unspecified Hematuria presence: without hematuria Qualified Code(s): N39.0 - Urinary tract infection, site not specified Dementia Qualifiers: Dementia type: Alzheimer's disease Alzheimer's disease onset: unspecified onset Dementia behavioral disturbance: without behavioral disturbance Qualified Code(s): G30.9 - Alzheimer's disease, unspecified; F02.80 - Dementia in other diseases classified elsewhere without behavioral disturbance Condition: Good Disposition: HOME, SELF-CARE Additional Instructions: Follow-up with personal doctor return to ER as needed take medicines as directed encourage fluids Prescriptions: Nitrofurantoin Monohyd/M-Cryst [Macrobid 100 mg Capsule] 100 mg PO BID #14 cap
[2019-08-21 19:51] VITALS: BP 142/105
== END 2019-08-21 19:51 | disposition home or self-care (01) ==
LOC: ER 16:32
DX: N39.0 Urinary tract infection, site not specified (principal); G30.9 Alzheimer's disease, unspecified; F02.80 Dementia in other diseases classified elsewhere, unspecified severity, without behavioral disturbance, psychotic disturbance, mood disturbance, and anxiety; I10 Essential (primary) hypertension
CPT/HCPCS: 99285; 96372; 96365; 87086; 82962; 87088; 81001; 87186; J1580; J0696

== ENCOUNTER 2019-12-18 13:57 | Emergency (ER) | payer MEDICARE, MEDICAID ==
[2019-12-18 14:09] VITALS: BP 138/98
--- NOTE | 2019-12-18 14:26 | ER Document Report ---
ED General - General Chief Complaint: Head Injury Stated Complaint: FALL/HEAD PAIN Time Seen by Provider: 12/18/19 14:14 Notes: Patient is an 84-year-old white female who was sent here by EMS from her assisted living facility, the [facility] for mechanical fall. Patient is baseline dementia in a memory care assisted living program. I called and spoke with the assisting care nurse at [phone] who gives patient's history. Patient cannot give history at baseline due to her baseline dementia. They report the patient was walking in the hallway with her blanket wrapped around her shoulders and hanging to her feet. They state that she got the blanket caught up on her feet and tripped falling backwards striking the back of her head on a "hard surface". They state the fall was witnessed and she did not lose any consciousness. Therefore immediately after the fall she sat right up they went over and started talking to her. They states she was acting at her baseline and has not changed since. They deny any acute mental status changes. No vomiting. They report they inspected her scalp for any bleeding or laceration or swelling and could not find any. They were concerned about how hard she hit her head so they sent her for evaluation. Patient is DNR. Med rec from the facility shows no anticoagulation or antiplatelet drugs. TRAVEL OUTSIDE OF THE [place] IN LAST 30 DAYS: No - Related Data Allergies/Adverse Reactions: chauhan peppers Allergy (Uncoded 12/28/17 19:27) Past Medical History - Social History Smoking Status: Unknown if Ever Smoked Lives with: Retirement Family History: Reviewed & Not Pertinent - Past Medical History Cardiac Medical History: Reports: Hx Hypertension Denies: Hx Coronary Artery Disease, Hx Heart Attack Pulmonary Medical History: Denies: Hx Asthma, Hx Bronchitis, Hx COPD, Hx Pneumonia Neurological Medical History: Denies: Hx Cerebrovascular Accident, Hx Seizures Renal/ Medical History: Denies: Hx Peritoneal Dialysis Musculoskeletal Medical History: Reports Hx Arthritis - ALL OVER Psychiatric Medical History: Reports: Hx Dementia Past Surgical History: Reports: Hx Breast Surgery - Immunizations Hx Diphtheria, Pertussis, Tetanus Vaccination: Yes Review of Systems - Review of Systems -: Yes ROS unobtainable due to patient's medical condition Physical Exam - Vital signs Vitals: Temp 98.5 F 12/18/19 14:07 Course - Re-evaluation Re-evalutation: 12/18/19 15:34 CT scans negative for any acute process. Incidentally noted enlarged pituitary gland, recommend this be evaluated with the patient's pituitary hormones by her primary facility physician. She is otherwise stable and at baseline. She is appropriate for discharge and outpatient follow-up. She will be transported back to her facility. - Vital Signs Vital signs: Temp Pulse Resp BP Pulse Ox 98.5 F 78 16 138/98 H 97 12/18/19 14:08 12/18/19 14:08 12/18/19 14:08 12/18/19 14:08 12/18/19 14:08 Discharge - Discharge Clinical Impression: Enlarged pituitary gland Head injury Qualifiers: Encounter type: initial encounter Qualified Code(s): S09.90XA - Unspecified injury of head, initial encounter Condition: Stable Disposition: HOME, SELF-CARE Instructions: Head Injury Precautions ([facility]) Additional Instructions: The patient was found to have an enlarged pituitary gland on CAT scan. The images were otherwise negative for any acute process per the radiologist reading. Please correlate this with the patient's pituitary hormones with the outpatient, facility physician. Please have the patient return here or any ER immediately with any new or worsening symptoms.
--- NOTE | 2019-12-18 15:20 | RADIOLOGY REPORT (SQ) ---
EXAM DESCRIPTION: CT HEAD WITHOUT IMAGES COMPLETED DATE/TIME: 12/18/2019 2:40 pm REASON FOR STUDY: AMS COMPARISON: 01/30/2019 TECHNIQUE: Axial images acquired through the brain without intravenous contrast. Images reviewed wi th bone, brain and subdural windows. Additional sagittal and coronal reconstructions were generated. Images stored on PACS. All CT scanners at this facility use dose modulation, iterative reconstruction, and/or weight based d osing when appropriate to reduce radiation dose to as low as reasonably achievable (ALARA). [facility]: Dose Right [facility]: CareDose [facility]: Dose Right [facility]: Teradose 4D [facility]: [employer] RADIATION DOSE: CT Rad equipment meets quality standard of care and radiation dose reduction techniq ues were employed. CTDIvol: 48.6 mGy. DLP: 905 mGy-cm. mGy. LIMITATIONS: None. FINDINGS: VENTRICLES: Prominent ventricles secondary to involutional atrophy. CEREBRUM: Cortical atrophy. No masses. No hemorrhage. No midline shift. No evidence for acute inf arction. Areas of low density in the white matter most likely chronic small vessel ischemic changes. CEREBELLUM: No masses. No hemorrhage. No alteration of density. No evidence for acute infarction. EXTRAAXIAL SPACES: No fluid collections. No masses. ORBITS AND GLOBE: No intra- or extraconal masses. Normal contour of globe without masses. CALVARIUM: No fracture. PARANASAL SINUSES: No fluid or mucosal thickening. SOFT TISSUES: No mass or hematoma. OTHER: There is fullness of the pituitary gland without significant sellar expansion. IMPRESSION: 1. Involutional changes with chronic microvascular ischemia and no acute intracranial i maging findings. 2. There is fullness of the pituitary gland without significant sellar expansion. Correlate with pi tuitary hormones. EVIDENCE OF ACUTE STROKE: NO. COMMENT: Quality ID # [id number]: Final reports with documentation of one or more dose reduction techniques (e.g., Automated exposure control, adjustment of the mA and/or kV according to patient size, use of iterative reconstruction technique) TECHNICAL DOCUMENTATION: JOB ID: [id number] 2010 [employer]- All Rights Reserved Reading location - IP/workstation name: [email or web address]
--- NOTE | 2019-12-18 15:21 | ER Document Report ---
Doctor's Note Notes: 12/18/19 15:20 This patient was personally evaluated by me in addition to the physician behavioral modification assistant or nurse practitioner. Review of systems: Unable: Dementia Physical exam: Pleasant, c-collar, talkative but confabulatory and not oriented but moving all extremities Medical decision making: Patient presents with a fall, no blood thinners. Will scan head and neck Likely at neurologic baseline can be discharge if negative.
--- NOTE | 2019-12-18 15:25 | RADIOLOGY REPORT (SQ) ---
EXAM DESCRIPTION: CT CERVICAL SPINE WITHOUT IMAGES COMPLETED DATE/TIME: 12/18/2019 2:40 pm REASON FOR STUDY: fall COMPARISON: None. TECHNIQUE: Axial images acquired through the cervical spine without intravenous contrast. Images re viewed with lung, soft tissue and bone windows. Reconstructed coronal and sagittal MPR images review ed. Images stored on PACS. All CT scanners at this facility use dose modulation, iterative reconstruction, and/or weight based d osing when appropriate to reduce radiation dose to as low as reasonably achievable (ALARA). [facility]: Dose Right [facility]: CareDose [facility]: Dose Right [facility]: Teradose 4D [facility]: [employer] RADIATION DOSE: CT Rad equipment meets quality standard of care and radiation dose reduction techniq ues were employed. CTDIvol: 13.8 mGy. DLP: 336 mGy-cm. mGy. LIMITATIONS: None. FINDINGS: ALIGNMENT: Anatomic. MINERALIZATION: Normal. VERTEBRAL BODIES: No fractures or dislocation. DISCS: All the cervical disc spaces are narrowed. Marginal osteophytes are most prominent at C5-6 an d C6-7. FACETS, LATERAL MASSES, POSTERIOR ELEMENTS: Hypertrophic facet changes left more than right. HARDWARE: None in the spine. VISUALIZED RIBS: No fractures. LUNG APICES AND SOFT TISSUES: No significant or acute findings. OTHER: No other significant finding. IMPRESSION: Degenerative disc disease, spondylosis, and facet arthropathy. No acute finding. TECHNICAL DOCUMENTATION: JOB ID: [id number] Quality ID # [id number]: Final reports with documentation of one or more dose reduction techniques (e.g., Au tomated exposure control, adjustment of the mA and/or kV according to patient size, use of iterative reconstruction technique) 2010 [employer]- All Rights Reserved Reading location - IP/workstation name: [email or web address]
== END 2019-12-18 15:45 | disposition home or self-care (01) ==
LOC: ER 13:57
DX: S09.90XA Unspecified injury of head, initial encounter (principal); E23.6 Other disorders of pituitary gland; W18.30XA Fall on same level, unspecified, initial encounter; Y92.129 Unspecified place in nursing home as the place of occurrence of the external cause; F03.90 Unspecified dementia, unspecified severity, without behavioral disturbance, psychotic disturbance, mood disturbance, and anxiety; I10 Essential (primary) hypertension; Z66 Do not resuscitate
CPT/HCPCS: 70450; 72125; 82962; 99284

== ENCOUNTER 2020-03-10 11:01 | Emergency (ER) | payer MEDICARE, MEDICAID ==
--- NOTE | 2020-03-10 12:22 | EKG REPORT ---
SEVERITY:- ABNORMAL ECG - SINUS RHYTHM ATRIAL PREMATURE COMPLEX OLD ANTERIOR [place] : Confirmed by: Randall Meredith MD 10-Mar-2020 12:21:29
[2020-03-10 13:05] LABS: APPEARANCE,URINE SLIGHTLY-CLOUDY; BILIRUBIN,URINE NEGATIVE (NEGATIVE); COLOR,URINE YELLOW; GLUCOSE, URINE NEGATIVE (NEGATIVE); KETONES,URINE NEGATIVE (NEGATIVE); LEUKOCYTE ESTERASE,URINE SMALL (NEGATIVE); NITRITE,URINE POSITIVE (NEGATIVE); PROTEIN,URINE NEGATIVE (NEGATIVE); URINE SPECIFIC GRAVITY 1.015
[2020-03-10] MEDS ORDERED: CEPHALEXIN 500 MG CAPSULE PO ONE (13:39)
[2020-03-10 14:13] VITALS: BP 147/79
--- NOTE | 2020-03-11 11:43 | ER Document Report ---
Entered by TREE JAMIL SCRIBE 03/10/20 1204 Acting as scribe for:TERRANCE JHA MD ED General - General Chief Complaint: Chest Pain Stated Complaint: CHEST DISCOMFORT Time Seen by Provider: 03/10/20 11:55 TRAVEL OUTSIDE OF THE [place] IN LAST 30 DAYS: No - Related Data Allergies/Adverse Reactions: chauhan peppers Allergy (Uncoded 12/28/17 19:27) Past Medical History - Social History Smoking Status: Unknown if Ever Smoked Frequency of alcohol use: None Drug Abuse: None Family History: Reviewed & Not Pertinent - Past Medical History Cardiac Medical History: Reports: Hx Hypertension Denies: Hx Coronary Artery Disease, Hx Heart Attack Pulmonary Medical History: Denies: Hx Asthma, Hx Bronchitis, Hx COPD, Hx Pneumonia Neurological Medical History: Denies: Hx Cerebrovascular Accident, Hx Seizures Renal/ Medical History: Denies: Hx Peritoneal Dialysis Musculoskeletal Medical History: Reports Hx Arthritis - ALL OVER Psychiatric Medical History: Reports: Hx Dementia Past Surgical History: Reports: Hx Breast Surgery - Immunizations Hx Diphtheria, Pertussis, Tetanus Vaccination: Yes Physical Exam - Vital signs Vitals: Temp Pulse Resp BP Pulse Ox 99.0 F 73 16 113/81 93 03/10/20 11:16 03/10/20 11:16 03/10/20 11:16 03/10/20 11:16 03/10/20 11:16 Course - Re-evaluation Re-evalutation: 03/10/20 13:38 The patient was put on Macrodantin for 7 days on 02/28/2020. Urinalysis today suggest urinary tract infection, so she will be treated with a different antibiotic and the urine will be cultured. - Vital Signs Vital signs: Temp Pulse Resp BP Pulse Ox 99.0 F 73 16 113/81 93 03/10/20 11:16 03/10/20 11:16 03/10/20 11:16 03/10/20 11:16 03/10/20 11:16 - Laboratory Laboratory results interpreted by me: 03/10/20 12:47 Urine Blood SMALL H Urine Nitrite POSITIVE H Urine Urobilinogen 4.0 H Ur Leukocyte Esterase SMALL H - EKG Interpretation by Md EKG shows normal: Sinus rhythm, [place], Intervals, QRS Complexes, ST-T Waves Rate: Normal - 85 Rhythm: NSR, APC's Discharge - Discharge Clinical Impression: Cough Chest pain Qualifiers: Chest pain type: unspecified Qualified Code(s): R07.9 - Chest pain, unspecified Urinary tract infection Qualifiers: Urinary tract infection type: site unspecified Hematuria presence: with hematuria Qualified Code(s): N39.0 - Urinary tract infection, site not specified; R31.9 - Hematuria, unspecified Condition: Stable Disposition: HOME, SELF-CARE Additional Instructions: The urinalysis today suggest a urinary tract infection. You were treated with Macrodantin 10 days ago, I suspect that was for urinary tract infection. You will receive a different antibiotic this time just in case this is a persistent urinary tract infection. The urine today will be cultured. Take the cephalexin antibiotic as prescribed and drink plenty of fluids. Have your doctor recheck your urine in a few days to be sure that it does clear. RETURN TO THE EMERGENCY ROOM IF ANY NEW OR WORSENING SYMPTOMS. Prescriptions: Cephalexin Monohydrate [Keflex 500 mg Capsule] 500 mg PO TID #15 capsule I personally performed the services described in the documentation, reviewed and edited the documentation which was dictated to the scribe in my presence, and it accurately records my words and actions.
== END 2020-03-10 14:13 | disposition home or self-care (01) ==
LOC: ER 11:01
DX: R07.9 Chest pain, unspecified (principal); N39.0 Urinary tract infection, site not specified; R31.9 Hematuria, unspecified; I49.1 Atrial premature depolarization; I10 Essential (primary) hypertension; R05 Cough; Z91.018 Allergy to other foods
CPT/HCPCS: 93005; 99284; 51701; 87086; 87088; 81001; 93010; A9270; 87186

== ENCOUNTER 2020-03-31 11:10 | Emergency (ER) | payer MEDICARE, MEDICAID ==
--- NOTE | 2020-03-31 12:10 | RADIOLOGY REPORT (SQ) ---
EXAM DESCRIPTION: CT HEAD WITHOUT IMAGES COMPLETED DATE/TIME: 03/31/2020 11:34 am REASON FOR STUDY: fall COMPARISON: 12/18/2019. TECHNIQUE: Axial images acquired through the brain without intravenous contrast. Images reviewed wi th bone, brain and subdural windows. Additional sagittal and coronal reconstructions were generated. Images stored on PACS. All CT scanners at this facility use dose modulation, iterative reconstruction, and/or weight based d osing when appropriate to reduce radiation dose to as low as reasonably achievable (ALARA). [facility]: Dose Right [facility]: CareDose [facility]: Dose Right [facility]: Teradose 4D [facility]: [employer] RADIATION DOSE: CT Rad equipment meets quality standard of care and radiation dose reduction techniq ues were employed. CTDIvol: 53.2 mGy. DLP: 2194 mGy-cm.mGy. LIMITATIONS: None. FINDINGS: VENTRICLES: Prominent. CEREBRUM: No masses. No hemorrhage. No midline shift. Areas of low density in the white matter mos t likely due to chronic micro-vascular ischemic change. No evidence for acute infarction. CEREBELLUM: No masses. No hemorrhage. No alteration of density. No evidence for acute infarction. EXTRAAXIAL SPACES: Age-related involutional change. No fluid collections. No masses. ORBITS AND GLOBE: No intra- or extraconal masses. Normal contour of globe without masses. CALVARIUM: No fracture. PARANASAL SINUSES: No fluid or mucosal thickening. SOFT TISSUES: No mass or hematoma. OTHER: No other significant finding. IMPRESSION: CHRONIC CHANGES OF ATROPHY AND MICROVASCULAR ISCHEMIA. NO ACUTE PROCESS. EVIDENCE OF ACUTE STROKE: NO. TECHNICAL DOCUMENTATION: JOB ID: [id number] Quality ID # 436: Final reports with documentation of one or more dose reduction techniques (e.g., Au tomated exposure control, adjustment of the mA and/or kV according to patient size, use of iterative reconstruction technique) 2010 [employer]- All Rights Reserved Reading location - IP/workstation name: [email or web address]
--- NOTE | 2020-03-31 12:13 | RADIOLOGY REPORT (SQ) ---
EXAM DESCRIPTION: CT CERVICAL SPINE WITHOUT IMAGES COMPLETED DATE/TIME: 03/31/2020 11:34 am REASON FOR STUDY: fall COMPARISON: 12/18/2019. TECHNIQUE: Axial images acquired through the cervical spine without intravenous contrast. Images re viewed with lung, soft tissue and bone windows. Reconstructed coronal and sagittal MPR images review ed. Images stored on PACS. All CT scanners at this facility use dose modulation, iterative reconstruction, and/or weight based d osing when appropriate to reduce radiation dose to as low as reasonably achievable (ALARA). [facility]: Dose Right [facility]: CareDose [facility]: Dose Right [facility]: Teradose 4D [facility]: [email or web address] RADIATION DOSE: CT Rad equipment meets quality standard of care and radiation dose reduction techniq ues were employed. CTDIvol: 9.4 mGy. DLP: 171 mGy-cm. mGy. LIMITATIONS: None. FINDINGS: ALIGNMENT: Anatomic. MINERALIZATION: Normal. VERTEBRAL BODIES: No fractures or dislocation. DISCS: Multilevel disc space narrowing with osteophytes. FACETS, LATERAL MASSES, POSTERIOR ELEMENTS: Facet arthropathy. No fractures. No dislocation. No ac abhijeet findings. HARDWARE: None in the spine. VISUALIZED RIBS: No fractures. LUNG APICES AND SOFT TISSUES: No significant or acute findings. OTHER: No other significant finding. IMPRESSION: CHRONIC DEGENERATIVE CHANGES. NO ACUTE FINDINGS. TECHNICAL DOCUMENTATION: JOB ID: [id number] Quality ID # 436: Final reports with documentation of one or more dose reduction techniques (e.g., Au tomated exposure control, adjustment of the mA and/or kV according to patient size, use of iterative reconstruction technique) 2010 [employer]- All Rights Reserved Reading location - IP/workstation name: [email or web address]
[2020-03-31 13:14] VITALS: BP 180/62
--- NOTE | 2020-03-31 13:30 | ER Document Report ---
Entered by XAVIER STEPHENSON SCRIBE 03/31/20 1209 Acting as scribe for:TERRANCE JHA MD ED Fall - General Chief Complaint: Fall Stated Complaint: FALL,HEAD PAIN Time Seen by Provider: 03/31/20 12:03 Mode of Arrival: Medic Information source: Emergency Med Personnel Notes: This 84 year old female patient with a history of dementia brought in by EMS from the [facility] assisted living facility presents to the ED today for evaluation after she slipped and hit her head on the door jam. No reported loss of consciousness. Nursing reports that the patient was transported to [facility] x[facility] weeks ago for a fall. Per EMS, patient is altered/confused at baseline. There is a C-collar in place. TRAVEL OUTSIDE OF THE [place] IN LAST 30 DAYS: No - Related data Allergies/Adverse Reactions: chauhan peppers Allergy (Uncoded 12/28/17 19:27) Past Medical History - General Information source: [facility] Records - Social History Smoking Status: Never Smoker Cigarette use (# per day): No Chew tobacco use (# tins/day): No Smoking Education Provided: No Frequency of alcohol use: None Drug Abuse: None Lives with: Other - [facility] Family History: Reviewed & Not Pertinent - Past Medical History Cardiac Medical History: Reports: Hx Hypertension Musculoskeletal Medical History: Reports Hx Arthritis - ALL OVER Psychiatric Medical History: Reports: Hx Dementia Past Surgical History: Reports: Hx Breast Surgery - Immunizations Hx Diphtheria, Pertussis, Tetanus Vaccination: Yes Review of Systems - Review of Systems -: Yes ROS unobtainable due to patient's medical condition - Dementia Physical Exam - Vital signs Vitals: Resp Pulse Ox 17 99 03/31/20 12:00 03/31/20 12:00 - General General appearance: Other - Awake and in no acute distress In distress: None - HEENT Head: Other - Fairly fresh wound noted in the left occupit that is stapled closed with scabbed over skin from prior fall Eyes: Normal Pupils: PERRL Neck: Other - C-spine immobilized by C-collar - Respiratory Respiratory status: No respiratory distress Chest status: Nontender Breath sounds: Normal Chest palpation: Normal - Cardiovascular Rhythm: Regular. No: Tachycardia Murmur: Yes Systolic murmur grade 1-6: 2 - Mild systolic ejection fraction - Abdominal Inspection: Normal Distension: No distension Bowel sounds: Normal Tenderness: Nontender Organomegaly: No organomegaly - Back Back: Normal, Nontender - Extremities General upper extremity: Normal inspection Knee: Other - Left knee is swollen compared to the right - Neurological Cognition: Other - At baseline per EMS - Psychological Associated symptoms: Normal affect, Normal mood - Skin Skin Temperature: Warm Skin Moisture: Dry Skin Color: Normal Course - Vital Signs Vital signs: Temp Pulse Resp BP Pulse Ox 98.2 F 11 L 180/62 H 100 03/31/20 12:03 03/31/20 13:00 03/31/20 12:03 03/31/20 12:03 - Laboratory Laboratory results interpreted by me: 03/31/20 13:30 Ur Leukocyte Esterase LARGE H - Diagnostic Test Radiology reviewed: Image reviewed, Reports reviewed - CT scan of the head neck shows chronic degenerative changes, melania seen in the left occipital scalp. No other acute changes are seen. Discharge - Discharge Clinical Impression: Falls frequently, Elevated blood pressure reading Urinary tract infection Qualifiers: Urinary tract infection type: site unspecified Hematuria presence: without hematuria Qualified Code(s): N39.0 - Urinary tract infection, site not specified Dementia Qualifiers: Dementia type: Alzheimer's disease Alzheimer's disease onset: late-onset Dem entia behavioral disturbance: with behavioral disturbance Qualified Code(s): G30.1 - Alzheimer's disease with late onset Condition: Stable Disposition: HOME, SELF-CARE Additional Instructions: Urinary Tract Infection: Your evaluation indicates that you have a urinary tract infection. This is due to germs growing in the bladder. This is a common problem. This infection usually responds quickly to antibiotics. Your antibiotic should be taken exactly as prescribed. Drink plenty of fluids -- three to four quarts a day. Occasionally, a bladder anesthetic will be prescribed to help stop the feeling of urgency until the antibiotic has a chance to clear the infection. This may cause your urine to be dark orange. Certain urine infections require a culture. If the doctor obtained a culture, the results will be back in two days. You should call to see if a c hange in treatment is needed. A repeat urinalysis after you finish treatment is often recommended. The physician will let you know if further testing is required. Call the doctor if you develop fever, chills, flank pain, inability to urinate, or blood in the urine. High Blood Pressure When your blood pressure was taken today it was elevated. Sometimes, stress or illness causes a temporary elevation of your blood pressure. We suggest that you get your blood pressure measured three more times during the next few days to see if this is more than a temporary abnormality. If your blood pressure is greater than 150/90 on each occasion, you must have treatment. If left untreated, hypertension greatly enhances your risk for developing heart disease and strokes. Please don't ignore this problem. Take the antibiotic as prescribed for your urinary tract infection. Drink plenty of fluids. Have the melania in your scalp removed in 1 week. Be sure to have your blood pressure checked every day, if it remains elevated you should see your primary care provider. RETURN TO THE EMERGENCY ROOM IF ANY NEW OR WORSENING SYMPTOMS. Prescriptions: Cephalexin Monohydrate [Keflex 500 mg Capsule] 500 mg PO TID #14 capsule I personally performed the services described in the documentation, reviewed and edited the documentation which was dictated to the scribe in my presence, and it accurately records my words and actions.
[2020-03-31 13:50] LABS: APPEARANCE,URINE SLIGHTLY-CLOUDY; BILIRUBIN,URINE NEGATIVE (NEGATIVE); COLOR,URINE STRAW; GLUCOSE, URINE NEGATIVE (NEGATIVE); KETONES,URINE NEGATIVE (NEGATIVE); LEUKOCYTE ESTERASE,URINE LARGE (NEGATIVE); NITRITE,URINE NEGATIVE (NEGATIVE); PROTEIN,URINE NEGATIVE (NEGATIVE); URINE SPECIFIC GRAVITY 1.006; UROBILINOGEN,URINE NEGATIVE mg/dL (<2.0)
== END 2020-03-31 17:30 | disposition home or self-care (01) ==
LOC: ER 11:10
DX: N39.0 Urinary tract infection, site not specified (principal); R51.9 Headache, unspecified; G30.1 Alzheimer's disease with late onset; I10 Essential (primary) hypertension; W01.10XA Fall on same level from slipping, tripping and stumbling with subsequent striking against unspecified object, initial encounter; Z91.81 History of falling
CPT/HCPCS: 70450; 72125; 81001; 87086; 87088; 87186; 99285